=== PATIENT | male | born 1970 | race Two or more races ===

== ENCOUNTER 2023-12-25 08:04 | Outpatient (REF) | payer MEDICARE, SELFPAY ==
--- NOTE | ~2023-12-25 | FL_ITS ---
EXAMINATION: XR FLUOROSCOPY UPPER GI WITH AIR CLINICAL INFORMATION: Epigastric pain. 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 Numerous spot images were obtained. FINDINGS: Dual and single contrast images of the esophagus demonstrate normal contour and mucosal pattern. Esophageal caliber is mildly patulous. No evidence of stricture, mass, or ulcerations identified. Esophageal peristalsis was normal. A small type I hiatal hernia is present. No significant gastroesophageal reflux was seen during the course of the examination and on reflux views. Dual contrast and single contrast images of the stomach demonstrated post surgical changes consistent with prior history of Frandy-en-Y gastric bypass. The gastrojejunostomy is widely patent without evidence of stricture. No masses or ulcerations are seen. No extravasation of barium is seen. Contrast freely passed into the alimentary limb without delay. No reflux of contrast seen into the excluded stomach or duodenum. The imaged jejunum has a normal fold pattern and caliber. FLUOROSCOPY TIME: 3 minutes 31 seconds Number of Spot Images: 13 Number of Cine: 8 DOSE AREA PRODUCT: 2444 uGy-m2 (microgray-meter squared) FL/FL upper GI w air IMPRESSION: 1. Mildly patulous esophagus. 2. Small type I hiatal hernia. 3. Expected appearance of post surgical changes related to prior history of Frandy-en-Y gastric bypass. The gastrojejunostomy is widely patent without evidence of stricture. No extravasation of contrast. No reflux into the efferent limb. This procedure was performed by Rahul Ling PA-C, and supervised by Dr. Ponce
== END 2023-12-25 08:05 | disposition home or self-care (01) ==
LOC: HO.XRAY 08:04
PROVIDERS: Visit Provider Physician Assistant
DX: R10.13 Epigastric pain (principal); Z98.84 Bariatric surgery status
CPT/HCPCS: 74246

== ENCOUNTER → 2023-12-25 08:10 | Outpatient (BNV) | payer MEDICARE, SELFPAY | PROVIDERS: Visit Provider Physician Assistant Surgical | DX: R10.13 Epigastric pain (principal); Z98.84 Bariatric surgery status | CPT/HCPCS: 74246 ==